=== PATIENT | female | born 1945 | race Caucasian/White ===

== ENCOUNTER → 2017-09-12 | Outpatient (CLI) | payer MEDICARE, OTHER ==
[~2017-09-12] MED LIST: ASP325TEC PO; CLOP75TA PO; EZET10TA5 PO; FISH1CAP15 PO; GABA-488 PO; LOSA50TA6 PO; METO100T2 PO; METO100T5 PO; NIAC1CAP PO; OMEG1CAP51 PO; OXYC-12 PO; REGADENOSON 0.4 MG/5 ML SYR (LEXISCAN) IV ONE; VIT B COMPLEX PO
== END ==
LOC: CARD 08:58
PROVIDERS: ATTEND Internal Medicine Interventional Cardiology
DX: Z01.810 Encounter for preprocedural cardiovascular examination (principal); E78.5 Hyperlipidemia, unspecified; I10 Essential (primary) hypertension; E66.9 Obesity, unspecified; I63.9 Cerebral infarction, unspecified
CPT/HCPCS: 93306

== ENCOUNTER → 2017-09-12 | Outpatient (CLI) | payer MEDICARE, OTHER ==
[~2017-09-12] MED LIST changes: +CATHETER FLUSH 10 ML SYR IV PRN
[2017-09-12 10:08] VITALS: BP 152/93
[2017-09-12 10:34] VITALS: BP 179/84
--- NOTE | 2017-09-12 19:48 | STRESS TEST ---
DATE OF SERVICE: 09/12/2017 LEXISCAN STRESS TEST REPORT PRIMARY PHYSICIAN: Dr. Linda Machuca. PERFORMING PHYSICIAN: Dr. Tin Hermosillo. INDICATION: Hyperlipidemia, hypertension, obesity, stroke, preoperative cardiovascular risk assessment. PROCEDURE DETAILS: The patient was brought to the stress lab after informed consent was taken. Lexiscan stress test was performed according to the protocol. A 0.4 mg of IV Lexiscan was given. Low-grade exercise was performed. Baseline EKG showed sinus rhythm at 62 BPM. Blood pressure 152/93 mmHg. Maximum heart rate was 102 BPM and blood pressure was 179/84 mmHg. The patient did not have any chest pain, arrhythmias or EKG changes during the stress test. A 9.29 mCi of Myoview were given for rest imaging and 28.8 mCi of Myoview were given for stress imaging. TID 0.97. EF 68% with normal wall motion. Normal perfusion during rest and stress imaging. CONCLUSION: 1. Pharmacological stress test is negative for ischemia. 2. Normal LV function with no wall motion abnormalities. 3. Normal perfusion during stress and rest. Job ID: [id number] DocumentID: [id number] Dictated Date: 09/12/2017 18:59:51 Communication Clerk Date: 09/12/2017 19:48:04 Dictated By: STEVE HERMOSILLO MD
== END ==
LOC: CARD 09:05
PROVIDERS: ATTEND Internal Medicine Interventional Cardiology
DX: Z01.810 Encounter for preprocedural cardiovascular examination (principal); E78.5 Hyperlipidemia, unspecified; I10 Essential (primary) hypertension; E66.9 Obesity, unspecified; I63.9 Cerebral infarction, unspecified
CPT/HCPCS: 78452; 93017

== ENCOUNTER → 2020-03-28 | Outpatient (CLI) | payer MEDICARE, OTHER ==
[~2020-03-28] MED LIST changes: -CATHETER FLUSH 10 ML SYR IV PRN; -REGADENOSON 0.4 MG/5 ML SYR (LEXISCAN) IV ONE
== END ==
LOC: CARD 09:00
PROVIDERS: ATTEND Internal Medicine Interventional Cardiology
DX: I25.10 Atherosclerotic heart disease of native coronary artery without angina pectoris (principal); I63.9 Cerebral infarction, unspecified; I10 Essential (primary) hypertension
CPT/HCPCS: 93306

== ENCOUNTER → 2022-01-03 | Outpatient (CLI) | payer MEDICARE, OTHER ==
[~2022-01-03] VITALS: Ht 167 cm; Wt 86.0 kg
[~2022-01-03] MED LIST changes: +CATHETER FLUSH 10 ML SYR IVP PRN
[2022-01-03 13:11] VITALS: BP 191/81
--- NOTE | 2022-01-03 14:39 | Cardiology Stress Test Report ---
Stress Test Report Date of Procedure/Referring: Date of Procedure: Jan 03, 2022 PCP Linda Machuca DO Admitting Physician Admitting Physician: Attending Physician: Maria Victoria White MD Indications: HTN Baseline Heart Rate: 56 Baseline Blood Pressure: Blood Pressure Systolic: 191 Blood Pressure Diastolic: 81 Vital Signs Date Time Temp Pulse Resp B/P (MAP) Pulse Ox O2 Delivery O2 Flow Rate FiO2 01/03/22 13:11 61 191/81 (117) Baseline Vital Signs Vital Signs Date Time Temp Pulse Resp B/P (MAP) Pulse Ox O2 Delivery O2 Flow Rate FiO2 01/03/22 13:11 61 191/81 (117) Baseline EKG: Baseline EKG: NSR Summary: After explaining the procedure and details to the patient, she signed the consent and was brought to the stress nuclear laboratory. Patient exercised on standard Surendra protocol, EKG, heart rate and blood pressure were monitored continuously, resting and stress doses of radio tracer were injected, imaging was acquired and reviewed in the short axis, horizontal long axis and vertical long axis views Patient was able to exercise for a total of 3 minutes on Surendra protocol, METs 4.6 Maximum heart rate 131 Maximum blood pressure 219/91 Stress EKG, Minimal nondiagnostic changes Recovery EKG, Return to baseline TID: 1.12 SSS: 4 SDS: 4 EF: 71 Conclusion: 1. Poor exercise tolerance for a total of 3 minutes on standard Surendra protocol, 4.6 METS achieving 91% of maximal expected heart rate 2. Appropriate heart rate response to exercise with severe hypertensive response to exercise return to baseline during recovery 3. Nondiagnostic EKG changes with exercise return to baseline during recovery 4. Breast attenuation with mild reversible ischemia involving the mid to apical anterolateral and inferolateral wall 5. Normal left ventricular size, ejection fraction 71% Copy Copies To 1: LINDA MACHUCA BASHAR J MD Jan 03, 2022 14:39
== END ==
LOC: CARD 10:52
PROVIDERS: ATTEND Internal Medicine Cardiovascular Disease
DX: I11.9 Hypertensive heart disease without heart failure (principal); I25.10 Atherosclerotic heart disease of native coronary artery without angina pectoris
CPT/HCPCS: 78452; 93017; 93306; A9502

== ENCOUNTER 2022-01-26 10:00 | Day surgery (SDC) | payer MEDICARE, OTHER ==
[2022-01-26] VITALS (13 sets, daily range): BP systolic 124–178; BP diastolic 64–95
[~2022-01-26] VITALS: Ht 168.9 cm; Wt 88.0 kg
[2022-01-26 08:12] LABS: HEMATOCRIT 43 % (35-52); MEAN CORPUSCULAR HEMOGLOBIN 30 pg (25-34); MEAN CORPUSCULAR HGB CONC 32 g/dL (32-36); MEAN CORPUSCULAR VOLUME 91 fL (80-99); MEAN PLATELET VOLUME 9.6 fL (9.0-12.2); PLATELET COUNT 268 10^3/uL (130-400); WHITE BLOOD COUNT 7.2 10^3/uL (4.3-11.0)
[2022-01-26 08:13] LABS: BILIRUBIN,URINE NEGATIVE (NEGATIVE); CLARITY,URINE CLEAR; COLOR,URINE YELLOW; GLUCOSE, URINE (UA) NEGATIVE (NEGATIVE); KETONES,URINE NEGATIVE (NEGATIVE); LEUKOCYTE ESTERASE ,URINE TRACE (NEGATIVE); NITRITE,URINE POSITIVE (NEGATIVE); PH,URINE 6.5 (5-9); PROTEIN,URINE NEGATIVE (NEGATIVE)
--- NOTE | 2022-01-26 08:18 | Diagnostic Imaging Report ---
CLINICAL INDICATION: Pre-heart catheterization. No chest complaints. EXAM: Portable chest x-ray upright view. COMPARISON: Chest x-ray dated 07/15/2012. FINDINGS: Lungs/pleura: Lungs are clear. There is no pneumothorax. There is no pleural effusion. Mediastinum: Again seen tortuous descending thoracic aorta is noted.. Pulmonary vasculature: Unremarkable. Heart: There is mild cardiomegaly. Bones/extrathoracic soft tissue: There are hypertrophic spurs involving the thoracic spine. IMPRESSION: There is mild cardiomegaly with no significant pulmonary vascular congestion. There is no radiographic evidence of acute cardiopulmonary process. Dictated by: Dictated on workstation # [id number]
[2022-01-26 08:23] LABS: ALBUMIN 4.4 GM/DL (3.2-4.5); POTASSIUM 3.8 MMOL/L (3.6-5.0)
[2022-01-26 08:24] LABS: INR 0.9 (0.8-1.4)
[2022-01-26 08:25] LABS: CALCIUM 9.3 MG/DL (8.5-10.1)
[2022-01-26 08:26] LABS: TOTAL PROTEIN 7.6 GM/DL (6.4-8.2)
[2022-01-26 08:28] LABS: BILIRUBIN,TOTAL 0.6 MG/DL (0.1-1.0)
[2022-01-26 08:29] LABS: CREATININE SERUM 1.43 MG/DL (0.60-1.30)
[2022-01-26 08:30] LABS: BACTERIA,URINE MODERATE /HPF; SQUAMOUS EPITHELIAL CELL,UR 0-2 /HPF; WBC,URINE 0-2 /HPF
[~2022-01-26 10:00] MED LIST changes: +AMLO5TAB4 PO; +ASPI-999 PO; +ATOR10TA66 PO; -CATHETER FLUSH 10 ML SYR IVP PRN; +HEParin (CATH LAB) 1,000 ML IV ONE; +HEParin 1000 UNIT/ML (10ML VIAL) FOR BOLUS ONE; +HYDR-3923 PO; +LIDOCAINE 1% INJ 20 ML VIAL ONE; +NITRO DRIP 25000 MCG/D5W 250 ML IV ONE; +NS IV 1000 ML 1,000 ML IV SCH; +NSTR15C TP; +NYST60PO TP; +TRZ50T PO; +VERAPAMIL 5 MG/2 ML (CALAN) VIAL IV ONE
[2022-01-26] MEDS ORDERED: fentaNYL INJ 100 MCG/2 ML AMP ONE (10:20)
[2022-01-26] MEDS ORDERED: MIDAZOLAM 5 MG/5 ML (VERSED) VIAL ONE (10:21)
--- NOTE | 2022-01-26 10:27 | Conscious Sedation/ASA ---
Conscious Sedation Pre-Proced Time 10:27 ASA Score 3 For ASA 3 and 4: Consider anesthesia and medical clearance. Also, for patients with a history of failed moderate sedation consider anesthesia. Airway Lungs Heart ASA score ASA 1: a normal healthy patient ASA 2: a patient with a mild systemic disease (mid diabetes, controlled hypertension, obesity x ASA 3: a patient with a severe systemic disease that limits activity (angina, COPD, prior Myocardial infarction) ASA 4: a patient with an incapacitating disease that is a constant threat to life (CHF, renal failure) ASA 5: a moribund patient not expected to survive 24 hrs. (ruptured aneurysm) ASA 6: a declared brain- patient whose organs are being harvested. For emergent operations, add the letter E after the classification Mallampati Classification Grade 3 Sedation Plan Analgesia, Amnesia, Plan communicated to team members, Discussed options with patient/fam, Discussed risks with patient/fam The patient is an appropriate candidate to undergo the planned procedure, sedation, and anesthesia. The patient immediately re-assessed prior to indication. FIDELIA MEIER MD Jan 26, 2022 10:27
[2022-01-26] MEDS ORDERED: ASPIRIN 325 MG (5 GR) TABLET ONE (11:36)
[2022-01-26] MEDS ORDERED: CLOPIDOGREL 300 MG (PLAVIX) TABLET PO ONE (11:36)
[2022-01-26] MEDS ORDERED: NS IV 1000 ML 1,000 ML IV SCH (11:45)
--- NOTE | 2022-01-26 12:12 | Cardiac Cath Report ---
Cardiac Cath Report Physician (s)/Matchbook Maker (s) Physician FIDELIA MEIER MD Pre-Procedure Diagnosis Pre-Procedure Diagnosis: Coronary artery disease Post-Procedure Note Procedure Start Date: Jan 26, 2022 Name of Procedure: Left heart catheterization Stenting to the LAD Findings/Procedure Note PROCEDURE NOTE: 76-year-old lady with history of coronary artery disease, had an abnormal stress test with anterior wall ischemia, has been having chest pain, scheduled for cardiac catheterization possible PTCA. After explaining the procedure to the patient, all pros and cons were explained, all questions were answered. The patient signed the consent and then she was placed on the cardiac catheterization laboratory. Groin was prepped SL fashion local anesthesia was used. Sheath placed in the right radial artery, I was unable to advance the regular J-wire, I used a glide J-wire and advanced [place] catheter over it to the left ventricular cavity, pressure was measured pullback LV to aorta was done, engage the left coronary system, I was unable to engage the right system, exchanged the catheter and used Faustino right catheter, engage the right system. Then decided to proceed with percutaneous intervention. A total of 6000 units of heparin were given, EBU guide was advanced, [place] wire was advanced through the LAD and parked distally, patient has 70 to 80% mid LAD stenosis, primary stenting with anastacio point 3 x 15 mm stent deployed under 16 nils up to 3.2 mm. Angiogram showed excellent results. At the end of the procedure the sheath was removed. Vascular band deployed FINDINGS: Hemodynamics LV 138/64 mean of 92 Aorta 143/63 mean of 70 ANATOMY: Left Main very short with notes obstructive disease Left Anterior Descending is calcified artery with patent stent proximally, severe stenosis at the mid LAD successful stenting using anastacio point 3 x 15 mm expanded to 3.2 mm with excellent results Left Circumflex has mild disease nonobstructive disease, dominant artery Right Coronary Artery is very small artery nondominant artery LV Gram was not done, pressure was measured CONCLUSION: 1. Calcified LAD with 70 to 80% mid LAD stenosis successful primary stenting using anastacio point stent 3 x 15 mm expanded to 3.2 mm with excellent results. 2. Dominant circumflex artery with mild disease no significant obstructive disease, small nondominant right coronary system 3. Normal left ventricular end-diastolic pressure. DISCUSSION AND RECOMMENDATION: Patient has been on aspirin and Plavix, continue current medication monitor Anesthesia Type: Conscious Sedation Estimated blood loss (mL): 30 ml Contrast Amount: 121 ml Total Radiation Dose: 1259 mGy Post-Procedure Diagnosis Post-operative diagnosis: Chest pain Coronary artery disease Hypertension Hyperlipidemia FIDELIA MEIER MD Jan 26, 2022 12:12
--- NOTE | 2022-01-26 18:23 | Discharge Inst-Post CATH ---
Discharge Inst-CATH/EP Problems Reviewed?: Yes Post Cardiac Cath/EP D/C Inst Follow Up/Plan Appointment with Dr. White's office in 2 to 4 weeks <b>CARDIAC CATH/EP PROCEDURE DISCHARGE INSTRUCTIONS</b> ACTIVITY * Go Home directly and rest. * Limit activity of the leg (or wrist if it was used) for 7 days including aer obics, swimming, jogging, bicycling, etc. * Restrict stair-climbing for 7 days if possible, if not, climb up with your non-cath leg, then bring together on the same step. * Avoid lifting, pushing, pulling or excessive movement of the affected extremi ty for 7 days. * Customary sexual activity may be resumed after 2 days-use caution not to use a position that strains or causes pain to the affected extremity. * No driving for 24 hours. * NO SMOKING. * Avoid straining for bowel movements for 7 days. * Gentle walking on level ground is allowed. * Returning to work will depend on the type of procedure and the results. Your doctor will discuss this with you. CALL YOUR DOCTOR FOR ANY OF THE FOLLOWING: *If bleeding from the puncture site occurs- Apply gentle pressure to site with clean cloth and call your doctor or EMS. * If a knot or lump forms under the skin, increases in size, or causes pain. * If bruising appears to be worsening or moving further down your leg instead of disappearing. * Temperature above 101 F. CARE OF YOUR GROIN INCISION; * Bruising or purple discoloration of the skin near the puncture site is common. * You may shower only, no bathtub bathing for 5 days. Be careful to avoid slipping as your leg may feel stiff. * If a closure device was used on your femoral artery, please see the attached guide regarding care of the device and your leg. * Leave dressing on FOR 24 hours. CARE OF YOUR WRIST INCISION; * Bruising or purple discoloration of the skin near the puncture site is common. * You may shower. * DO NOT submerge wrist. * Leave dressing on FOR 24 hours. FIDELIA WHITE MD Jan 26, 2022 18:23
[2022-01-26] MEDS ORDERED: hydrALAZINE (APRESOLINE) 25 MG TAB PO SCH (21:00)
[2022-01-26] MEDS ORDERED: traZODone 50 MG (DESYREL) TAB PO SCH (21:00)
[2022-01-26] MEDS ORDERED: AtorvaSTATin TABLET 10 MG TABLET PO SCH (21:00)
[2022-01-27] MEDS ORDERED: meTOprolol SUCCINATE 100 MG (TOPROL XL) TAB PO SCH (09:00)
[2022-01-27] MEDS ORDERED: amLODIPine 5 MG (NORVASC) TAB PO SCH (09:00)
[2022-01-27] MEDS ORDERED: CLOPIDOGREL 75 MG (PLAVIX) TABLET PO SCH ×2 (09:00)
[2022-01-27] MEDS ORDERED: ASPIRIN E.C. 81 MG (ECOTRIN) TAB PO SCH (09:00)
[2022-01-27] MEDS ORDERED: eZETimibe 10 MG (ZETIA) TABLET PO SCH (09:00)
== END 2022-01-26 19:00 | disposition home or self-care (01) ==
LOC: CATH 10:00 → CSD 12:20 → CATH 19:00
PROVIDERS: ATTEND Internal Medicine Cardiovascular Disease
DX: I25.10 Atherosclerotic heart disease of native coronary artery without angina pectoris (principal); R94.39 Abnormal result of other cardiovascular function study; E78.5 Hyperlipidemia, unspecified; I12.9 Hypertensive chronic kidney disease with stage 1 through stage 4 chronic kidney disease, or unspecified chronic kidney disease; N18.30 Chronic kidney disease, stage 3 unspecified; I65.23 Occlusion and stenosis of bilateral carotid arteries
CPT/HCPCS: 71045; 80053; 81000; 85027; 85610; 85730; 87077; 87081; 87088; 87186; 93005; 93458; C1769 ×3; C1874; C1887; C1894; C9600; 36415

== ENCOUNTER → 2022-08-15 | Outpatient (CLI) | payer MEDICARE, OTHER ==
[~2022-08-15] MED LIST changes: +CATHETER FLUSH 10 ML SYR IVP PRN; -HEParin (CATH LAB) 1,000 ML IV ONE; -HEParin 1000 UNIT/ML (10ML VIAL) FOR BOLUS ONE; -LIDOCAINE 1% INJ 20 ML VIAL ONE; -NITRO DRIP 25000 MCG/D5W 250 ML IV ONE; -NS IV 1000 ML 1,000 ML IV SCH; -NSTR15C TP; +NYST15CR36 TP; +REGADENOSON 0.4 MG/5 ML SYR (LEXISCAN) IV ONE; -VERAPAMIL 5 MG/2 ML (CALAN) VIAL IV ONE
[2022-08-15] MEDS: CATHETER FLUSH 10 ML SYR IVP PRN ×2 (07:57→08:11)
[2022-08-15 09:44] VITALS: BP 167/83
--- NOTE | 2022-08-15 11:57 | Cardiology Stress Test Report ---
Stress Test Report Date of Procedure/Referring: Date of Procedure: Aug 15, 2022 PCP Linda Machuca DO Admitting Physician Admitting Physician: Attending Physician: Carley Coon Indications: CP Baseline Heart Rate: 53 Baseline Blood Pressure: Blood Pressure Systolic: 167 Blood Pressure Diastolic: 83 Baseline Vitals Vital Signs Date Time Temp Pulse Resp B/P (MAP) Pulse Ox O2 Delivery O2 Flow Rate FiO2 08/15/22 09:44 71 167/83 (111) Baseline EKG: Baseline EKG: NSR Summary After explaining the procedure to the patient, she signed a consent and then brought to the stress nuclear laboratory. Patient received 0.4 mg Lexiscan for stress test, ECG, heart rate and blood pressure were monitored continuously. Resting and stress dose of radio tracer were injected, imaging was acquired and reviewed in short axis, horizontal long axis and vertical long axis views. TID: 1.11 SSS: 7 SDS: 5 EF: 73 1. Patient tolerated Lexiscan well 2. Reversible ischemia involving the anterior wall and anterolateral wall 3. Normal left ventricular size, ejection fraction 73% Copy Copies To 1: LINDA MACHUCA BASHAR J MD Aug 15, 2022 11:57
== END ==
LOC: CARD 08:15
PROVIDERS: ATTEND Physician Assistant
DX: I25.10 Atherosclerotic heart disease of native coronary artery without angina pectoris (principal); I10 Essential (primary) hypertension
CPT/HCPCS: 78452; 93017; A9502

== ENCOUNTER 2022-08-29 09:00 | Day surgery (SDC) | payer MEDICARE, OTHER ==
[~2022-08-29] VITALS: Ht 168.9 cm; Wt 87.3 kg
[2022-08-29] VITALS (9 sets, daily range): BP systolic 111–187; BP diastolic 61–99
[2022-08-29 07:31] LABS: HEMATOCRIT 42 % (35-52); HEMOGLOBIN 13.5 g/dL (11.5-16.0); MEAN CORPUSCULAR HEMOGLOBIN 30 pg (25-34); MEAN CORPUSCULAR HGB CONC 33 g/dL (32-36); MEAN CORPUSCULAR VOLUME 91 fL (80-99); MEAN PLATELET VOLUME 9.7 fL (9.0-12.2); PLATELET COUNT 225 10^3/uL (130-400); WHITE BLOOD COUNT 6.9 10^3/uL (4.3-11.0)
[2022-08-29 07:44] LABS: BILIRUBIN,URINE NEGATIVE (NEGATIVE); CLARITY,URINE CLEAR; COLOR,URINE YELLOW; GLUCOSE, URINE (UA) NEGATIVE (NEGATIVE); KETONES,URINE NEGATIVE (NEGATIVE); LEUKOCYTE ESTERASE ,URINE 1+ (NEGATIVE); NITRITE,URINE POSITIVE (NEGATIVE); PH,URINE 5.5 (5-9); PROTEIN,URINE NEGATIVE (NEGATIVE)
[2022-08-29 08:03] LABS: ALBUMIN 4.2 GM/DL (3.2-4.5); BILIRUBIN,TOTAL 0.7 MG/DL (0.1-1.0); CALCIUM 9.3 MG/DL (8.5-10.1); CREATININE SERUM 1.41 MG/DL (0.60-1.30); POTASSIUM 3.5 MMOL/L (3.6-5.0); TOTAL PROTEIN 7.1 GM/DL (6.4-8.2)
[2022-08-29 08:06] LABS: PROTHROMBIN TIME PATIENT 13.7 SEC (12.2-14.7)
[2022-08-29 08:18] LABS: BACTERIA,URINE LARGE /HPF; RBC,URINE RARE /HPF
--- NOTE | 2022-08-29 08:21 | Diagnostic Imaging Report ---
INDICATION: Coronary disease, preop for coronary angiography. Frontal chest obtained at 07:47 a.m. compared with 01/26/2022 FINDINGS: The heart is mildly enlarged. Aorta is tortuous. The lungs are clear. There is no pneumothorax or pleural fluid. IMPRESSION: Cardiomegaly with no acute process in the chest. Dictated by: Dictated on workstation # [id number]
--- NOTE | 2022-08-29 08:23 | Cardiac Procedure Note-CS/ASA ---
Pre-Procedure Note Pre-Op Procedure Note Date of Available H&P: Aug 16, 2022 Date H&P Reviewed: Aug 29, 2022 Time H&P Reviewed: 08:23 History & Physical: H&P Reviewed, Patient Examed, No changes noted Pre-Operative Diagnosis: Coronary artery disease Conscious Sedation Pre-Proced Time 08:23 ASA Score 3 For ASA 3 and 4: Consider anesthesia and medical clearance. Also, for patients with a history of failed moderate sedation consider anesthesia. Airway Lungs Heart ASA score ASA 1: a normal healthy patient ASA 2: a patient with a mild systemic disease (mid diabetes, controlled hypertension, obesity ASA 3: a patient with a severe systemic disease that limits activity (angina, COPD, prior Myocardial infarction) ASA 4: a patient with an incapacitating disease that is a constant threat to life (CHF, renal failure) ASA 5: a moribund patient not expected to survive 24 hrs. (ruptured aneurysm) ASA 6: a declared brain- patient whose organs are being harvested. For emergent operations, add the letter E after the classification Mallampati Classification Grade 3 Sedation Plan Analgesia, Amnesia, Plan communicated to team members, Discussed options with patient/fam, Discussed risks with patient/fam The patient is an appropriate candidate to undergo the planned procedure, sedation, and anesthesia. The patient immediately re-assessed prior to indication. FIDELIA MEIER MD Aug 29, 2022 08:23
[~2022-08-29 09:00] MED LIST changes: +ACET-2650 PO; +ASPI-1238 PO; -CATHETER FLUSH 10 ML SYR IVP PRN; +CLOP75TA28 PO; +CYAN-41 PO; +EZET10TA49 PO; +HEParin (CATH LAB) 2,000 ML IV ONE; +HEParin 1000 UNIT/ML (10ML VIAL) FOR BOLUS ONE; +LIDOCAINE 1% INJ 20 ML VIAL ONE; +MIDAZOLAM 5 MG/5 ML (VERSED) VIAL ONE; +MTP100TCR PO; +NITRO DRIP 25000 MCG/D5W 250 ML IV ONE; +NS IV 1000 ML 1,000 ML IV SCH; +NS IV 1000 ML 1,000 ML ONE; -REGADENOSON 0.4 MG/5 ML SYR (LEXISCAN) IV ONE; +ROSU5TAB13 PO; +VERAPAMIL 5 MG/2 ML (CALAN) VIAL IV ONE; +fentaNYL INJ 100 MCG/2 ML AMP ONE
--- NOTE | 2022-08-29 09:12 | Discharge Inst-Post CATH ---
Discharge Inst-CATH/EP Problems Reviewed?: Yes Post Cardiac Cath/EP D/C Inst Follow Up/Plan Appointment with Dr. White's office in 2 to 4 weeks <b>CARDIAC CATH/EP PROCEDURE DISCHARGE INSTRUCTIONS</b> ACTIVITY * Go Home directly and rest. * Limit activity of the leg (or wrist if it was used) for 7 days including aer obics, swimming, jogging, bicycling, etc. * Restrict stair-climbing for 7 days if possible, if not, climb up with your non-cath leg, then bring together on the same step. * Avoid lifting, pushing, pulling or excessive movement of the affected extremi ty for 7 days. * Customary sexual activity may be resumed after 2 days-use caution not to use a position that strains or causes pain to the affected extremity. * No driving for 24 hours. * NO SMOKING. * Avoid straining for bowel movements for 7 days. * Gentle walking on level ground is allowed. * Returning to work will depend on the type of procedure and the results. Your doctor will discuss this with you. CALL YOUR DOCTOR FOR ANY OF THE FOLLOWING: *If bleeding from the puncture site occurs- Apply gentle pressure to site with clean cloth and call your doctor or EMS. * If a knot or lump forms under the skin, increases in size, or causes pain. * If bruising appears to be worsening or moving further down your leg instead of disappearing. * Temperature above 101 F. CARE OF YOUR GROIN INCISION; * Bruising or purple discoloration of the skin near the puncture site is common. * You may shower only, no bathtub bathing for 5 days. Be careful to avoid slipping as your leg may feel stiff. * If a closure device was used on your femoral artery, please see the attached guide regarding care of the device and your leg. * Leave dressing on FOR 24 hours. CARE OF YOUR WRIST INCISION; * Bruising or purple discoloration of the skin near the puncture site is common. * You may shower. * DO NOT submerge wrist. * Leave dressing on FOR 24 hours. FIDELIA WHITE MD Aug 29, 2022 09:12
[2022-08-29] MEDS ORDERED: NS IV 1000 ML 1,000 ML IV SCH (09:15)
--- NOTE | 2022-08-29 09:35 | Cardiac Cath Report ---
Cardiac Cath Report Physician (s)/Railroad Mechanic (s) Physician FIDELIA MEIER MD Pre-Procedure Diagnosis Pre-Procedure Diagnosis: Coronary artery disease Post-Procedure Note Procedure Start Date: Aug 29, 2022 Name of Procedure: Left heart catheterization Findings/Procedure Note PROCEDURE NOTE: 77-year-old lady with history of coronary artery disease, had an abnormal stress test with anterior wall ischemia scheduled for cardiac catheterization possible PTCA. After explaining the procedure to the patient, all pros and cons were explained, all questions were answered. The patient signed the consent and then she was placed in the cardiac catheterization laboratory. Groin was prepped in SL fashion local anesthesia was used. Sheath placed in the right radial artery, I had difficulty advancing the J-wire, used baby J-wire, [place] catheter advanced and engaged the left coronary system, angiogram was done. Then exchanged over a long J-wire to a Faustino right catheter, advanced to the left ventricular cavity, pressure was measured, engage the right coronary artery and angiogram was done. At the end of the procedure the sheath was removed. Vascular band was used FINDINGS: Hemodynamics LV 151/24, end-diastolic pressure of 24 Aorta 169/85 mean of 120 ANATOMY: Left Main is free of obstructive disease Left Anterior Descending is heavily calcified artery proximally with no obstructive disease, patent stent in the mid LAD, at the mid to distal segment there was 2 area of 50% stenosis nonobstructive disease Left Circumflex is dominant artery with no significant obstructive disease, 60% stenosis at the distal circumflex artery small branch. Nonobstructive disease Right Coronary Artery is small nondominant artery with 40% stenosis nonobstructive disease LV Gram was not done, pressure was measured CONCLUSION: 1. Heavily calcified LAD with patent stent in the mid LAD, distally there were 2 areas of 50% stenosis nonobstructive disease 2. Otherwise mild to moderate disease in the distal circumflex artery and mid right coronary artery nonobstructive disease 3. Elevated left ventricular end-diastolic pressure, hypertensive heart disease DISCUSSION AND RECOMMENDATION: Continue to maximize medical therapy Anesthesia Type: Conscious Sedation Estimated blood loss (mL): 20 ml Contrast Amount: 43 ml Total Radiation Dose: 407 mGy Post-Procedure Diagnosis Post-operative diagnosis: Chest pain Coronary artery disease Hypertension Hyperlipidemia FIDELIA MEIER MD Aug 29, 2022 09:34
== END 2022-08-29 11:40 | disposition home or self-care (01) ==
LOC: CATH 09:00 → SDC 09:29 → CATH 11:40
PROVIDERS: ATTEND Internal Medicine Cardiovascular Disease
DX: R07.9 Chest pain, unspecified (principal); I25.10 Atherosclerotic heart disease of native coronary artery without angina pectoris; E66.9 Obesity, unspecified; R42 Dizziness and giddiness; I65.23 Occlusion and stenosis of bilateral carotid arteries; I12.9 Hypertensive chronic kidney disease with stage 1 through stage 4 chronic kidney disease, or unspecified chronic kidney disease; N18.30 Chronic kidney disease, stage 3 unspecified; E78.2 Mixed hyperlipidemia; I73.9 Peripheral vascular disease, unspecified; Z86.73 Personal history of transient ischemic attack (TIA), and cerebral infarction without residual deficits; Z87.891 Personal history of nicotine dependence; Z79.02 Long term (current) use of antithrombotics/antiplatelets; Z79.82 Long term (current) use of aspirin; Z95.5 Presence of coronary angioplasty implant and graft; Z68.30 Body mass index [BMI] 30.0-30.9, adult
CPT/HCPCS: 71045; 80053; 80061; 81000; 85027; 85610; 85730; 87081; 87088; 93005; 93458; C1769; C1894; 36415; 87077